=== PATIENT | male | born 1960 | race Two or more races ===

== ENCOUNTER 2022-11-09 14:57 | Emergency (ER) | payer OTHER ==
[~2022-11-09] VITALS: Ht 170.2 cm; Wt 99.8 kg
[~2022-11-09 14:57] MED LIST: COZAAR25 MG; HYDROCHLOROTHIA25 MG; LOVAZA1 G; ZYLOPRIM300 MG
[2022-11-09] MEDS ORDERED: TOPROL XL100 M1 PO (15:12)
== END 2022-11-09 20:11 | disposition home or self-care (01) ==
LOC: ER 14:57
PROVIDERS: General Practice
DX: K57.92 Diverticulitis of intestine, part unspecified, without perforation or abscess without bleeding (principal); I10 Essential (primary) hypertension

== ENCOUNTER 2023-10-28 10:48 | Emergency (ER) | payer OTHER ==
[~2023-10-28] VITALS: Ht 172.7 cm; Wt 90.7 kg
[~2023-10-28 10:48] MED LIST changes: +TOPROL XL100 M1 PO
[2023-10-28] MEDS ORDERED: PRAVASTATIN SOD10 MG (11:17)
[2023-10-28] MEDS ORDERED: BARIUM SULFATE 450 ML ORAL.SUSP PO ONE (12:03)
[2023-10-28 12:12] LABS: HEMATOCRIT 39.5 % (39.0-48.0); HEMOGLOBIN 13.5 g/dL (13-16.00); MEAN CORPUSCULAR HEMOGLOBIN 31.3 pg (27.00-32.0); MEAN CORPUSCULAR HGB CONC 34.1 g/dl (32.0-36.0); PLATELET COUNT 203 K/uL (150-450); RED CELL DISTRIBUTION WIDTH 15.1 % (11.5-14.5)
[2023-10-28 12:51] LABS: CALCIUM 9.7 mg/dL (8.5-10.1); CREATININE SERUM 1.17 mg/dL (0.70-1.30); GFR 63.17
[2023-10-28 13:02] LABS: POTASSIUM 2.97 mEq/L (3.5-5.1)
[2023-10-28] MEDS ORDERED: POTASSIUM CHLORIDE/D5-0.9%NACL 1,000 ML IV NR (13:15)
[2023-10-28 14:17] LABS: URINE APPEARANCE Cloudy; URINE BILIRRUBIN Moderate (NEGATIVE); URINE BLOOD Negative; URINE COLOR Dark Yellow; URINE GLUCOSE Negative (NEGATIVE); URINE KETONE 15 (NEGATIVE); URINE LEUKOCYTE Small; URINE NITRATE Negative
[2023-10-28 14:21] LABS: URINE BACTERIA 178.8 uL (0.0-1933); URINE EPITHELIAL CELLS 105.7 uL (0.0-38.8); URINE WBC 12.3 uL (0.0-23.2)
[2023-10-28 14:49] LABS: URINE MUCUS SCANT; URINE PROTEIN 100 (NEGATIVE)
[2023-10-28] MEDS ORDERED: 0.9 % SODIUM CHLORIDE 1,000 ML IV SCH (15:22)
[2023-10-28] MEDS ORDERED: FAMOTIDINE/PF 20 MG in 0.9 % SODIUM CHLORIDE 8 ML IV PUSH STA (17:11)
[2023-10-28] MEDS ORDERED: KETOROLAC TROMETHAMINE 30 MG VIAL IV ONE (17:15)
[2023-10-28] MEDS ORDERED: METRONIDAZOLE/SODIUM CHLORIDE 500 MG/100 ML PIGGYBACK IV ONE ×2 (17:15→17:32)
[2023-10-28] MEDS ORDERED: CIPRO500 MG PO (17:22)
[2023-10-28] MEDS ORDERED: LEVSIN/SL0.125 MG SL (17:22)
[2023-10-28] MEDS ORDERED: PEPCID AC20 MG PO (17:22)
[2023-10-28] MEDS ORDERED: METRONIDAZOLE500 MG PO (17:22)
[2023-10-28] MEDS ORDERED: POTASSIUM CHLORIDE 10 MEQ CAPSULE PO ONE (17:30)
[2023-10-28] MEDS ORDERED: FAMOTIDINE/PF 20 MG/2 ML VIAL ONE (17:32)
== END 2023-10-28 18:35 | disposition home or self-care (01) ==
LOC: ER 10:50
PROVIDERS: Emergency Medicine
DX: K57.92 Diverticulitis of intestine, part unspecified, without perforation or abscess without bleeding (principal); I10 Essential (primary) hypertension; E78.00 Pure hypercholesterolemia, unspecified